=== PATIENT | male | born 1965 | race African-American/Black ===

== ENCOUNTER 2016-10-11 22:16 | Emergency (ER) ==
[2016-10-11 22:35] VITALS: BP 124/078
--- NOTE | 2016-10-11 23:25 | PROVIDER DOCUMENTATION ---
HPI-General Adult - General Chief Complaint: Flu Symptoms Stated Complaint: FLU SX Time Seen by Provider: 10/11/16 22:38 Source: patient Allergies/Adverse Reactions: Patient Allergies Allergy/AdvReac Type Severity Reaction Status Date / Time shellfish derived Allergy SWELLING Verified 06/25/16 13:32 Home Medications: Home Medication List Medication Instructions Recorded Confirmed Last Taken Type Docusate Sodium [Dok] 100 mg PO HS 08/20/13 06/25/16 06/24/16 22:00 History Efavirenz/Emtricitab/Tenofovir 1 each PO HS 08/20/13 06/25/16 06/24/16 22:00 History [Atripla] Glyburide [Diabeta] 10 mg PO QHS 08/20/13 06/25/16 06/24/16 22:00 History Loratadine [Claritin] 5 mg PO HS 08/20/13 06/25/16 06/24/16 22:00 History PRAVAstatin [Pravachol] 40 mg PO QHS 08/20/13 06/25/16 06/24/16 22:00 History Insulin NPH Hum/Reg Insulin Hm 20 units SUBQ BID 09/23/14 06/25/16 06/11/16 06: 00 History [Humulin 70-30 Vial] Amoxicillin [Amoxil] 875 mg PO BID #14 tablet 06/25/16 Unknown Rx Guaifen/Dextromethorphan/PE 1 each PO TID #30 tablet 06/25/16 Unknown Rx [Deconex Dmx Tablet] Prednisone 20 mg PO DAILY #12 tablet 06/25/16 Unknown Rx Levofloxacin [Levaquin] 500 mg PO DAILY #10 tablet 10/11/16 Unknown Rx - History of Present Illness -Gen Adult Nature of Presenting Problems: 51 YOHM PRESENTS TO ED WITH C/O PT STATES HE HAS HAD COUGH,CONGESTION, RUNNY NOSE, FOR THE LAST 4 DAYS. Location of Pain/Injury: reports: head Pain Radiation: reports: no radiation Quality of Pain: reports: aching Severity: reports: mild Onset/Duration: reports: 4 days ago Timing: reports: still present Context/Activities at Onset: reports: light activity Modifying Factors: improves with: nothing Associated Symptoms: reports: cough, sinus congestion/drainage Similar Symptoms Previously?: No Recently seen or treated by another doctor?: No Review of Systems - Adult - REVIEW OF SYSTEMS - ADULT Constitutional: denies: chills, fever Eyes: reports: no symptoms reported Ears, Nose, Mouth & Throat: reports: sinus problem Cardiovascular: denies: chest pain, palpitations, syncope Respiratory: reports: cough. denies: shortness of breath, wheezing Gastrointestinal: denies: abdominal pain, diarrhea, nausea, vomiting Genitourinary: reports: no symptoms reported Musculoskeletal: denies: back pain Integumentary: reports: no symptoms reported Neurological: denies: dizziness/vertigo, headache/migraines, syncope Psychiatric: reports: no symptoms reported Endocrine: reports: no symptoms reported Hematologic/Lymphatic: reports: no symptoms reported Allergic/Immunologic: reports: no symptoms reported All Other Systems: Reviewed and Negative Past History - Adult - PAST MEDICAL HISTORY-ADULT Review of Records: reports: Nursing Assessment Review, Medications Reviewed Respiratory: reports: other (sleep apena) Other Conditions: reports: other (HIV) - IMMUNIZATION STATUS Childhood Immunizations: See Nurse Assessment Flu Vaccine: See Nurse Assessment - FAMILY HISTORY Family History: reviewed, not pertinent - SOCIAL HISTORY Smoking: cigarettes, greater than 1 pack/day Provider spent 3-5 mins advising pt. on dangers of tobacco.: Discussed manners to quit use, and f/u contacts for add'l counseling. Substance Use: denies Alcohol Use Frequency: never Living Situation: family Physical Exam-General - CONSTITUTIONAL General Appearance: alert, mild distress - EYES Eyes: PERRL/EOMI, pink conjunctivae - HEAD, EARS, NOSE, MOUTH & THROAT HENMT: normocephalic/atraumatic, moist mucous membranes - NECK Neck: non-tender, full range of motion, supple - RESPIRATORY Respiratory: chest non-tender, lungs clear, normal breath sounds - CARDIOVASCULAR Cardiovascular: normal peripheral pulses, regular rate, rhythm - GASTROINTESTINAL (ABDOMEN) Abdominal Exam: normal bowel sounds, non tender, soft - LYMPHATIC Lymphatic: no adenopathy - MUSCULOSKELETAL Back Exam: normal inspection, no CVA tenderness, no vertebral tenderness Extremity: normal range of motion, non-tender - SKIN Integumentary: normal color, normal turgor, warm/dry - NEUROLOGIC Neurologic: grossly normal - PSYCHIATRIC Psych/Mental Status: oriented x 3 Progress - XRAY 1 XRAY: Bilateral XRAY Study: Chest XRAY Interpretation: NEGATIVE Departure - Departure Time of Disposition Order: 23:44 DIAGNOSIS: URI (upper respiratory infection) Qualifiers: URI type: unspecified URI Qualified Code(s): J06.9 - Acute upper respiratory infection, unspecified Disposition: HOME 01 Certified Medical Emergency: Emergent Condition: Stable Additional Instructions: ED Follow Up Instructions: You have been treated by a care provider in the Emergency Department. These instructions are being provided to you so you can have an understanding of how to care for yourself upon discharge. Upon discharge from the Emergency Department, you are responsible for making arrangements for follow-up care by a physician of your choice. Take all prescribed medications as directed. Return to the Emergency Department immediately for any new or worsening symptoms. You may call the Physician Referral phone number at [phone] to obtain a list of Physicians who are taking new patients. Prescriptions: Levofloxacin [Levaquin] 500 mg PO DAILY #10 tablet Referrals: Julia Slater [Primary Care Provider] - Forms: Return to School/Parent Work Instructions: Upper Respiratory Infection, Adult, [id number], Levofloxacin tablets Attestation - Scribe Verification/Attestation Scribe:: Shashi Neely Acting as Scribe for:: Yohan Weston Scribe documention review:: This chart was documented by a scribe and accurately reflects the service the provider performed and the decisions made by the provider.
--- NOTE | 2016-10-12 10:47 | Diag Imaging Result Document ---
PROCEDURE NAME: CHEST-2 VIEWS - 10/11/2016 CHEST, 2 VIEWS: COMPARISON: 06/25/2016. FINDINGS: Heart size appears within normal limits and stable. The lungs appear clear. There is no pleural effusion or pneumothorax seen. There is mild biapical pleural thickening which is stable. IMPRESSION: No evidence of acute disease.
== END 2016-10-11 23:35 | disposition home or self-care (01) ==
LOC: P.ED 22:16
DX: J06.9 Acute upper respiratory infection, unspecified (principal); R05 Cough; R09.81 Nasal congestion; R09.89 Other specified symptoms and signs involving the circulatory and respiratory systems; F17.210 Nicotine dependence, cigarettes, uncomplicated; Z79.4 Long term (current) use of insulin; Z79.899 Other long term (current) drug therapy; Z71.6 Tobacco abuse counseling; Z21 Asymptomatic human immunodeficiency virus [HIV] infection status
CPT/HCPCS: 71020; 87081; 87430; 87804; 99283